=== PATIENT | male | born 1975 | race Caucasian/White ===

== ENCOUNTER 2021-08-13 17:51 | Inpatient (IN) ==
[2021-08-13 18:56] LABS: ABS Basophils 0.1 10^3/ul (0-0.2); ABS Eosinophils 0.2 10^3/ul (0-0.6); ABS Lymphocytes 1.4 10^3/ul (1.0-4.8); ABS Monocytes 0.6 10^3/ul (0-0.8); ABS Neutrophils 3.2 10^3/ul (1.5-7.7); Eosinophil % 4.4 %; Hematocrit 41 % (42-52); Hemoglobin 13.9 g/dL (14.0-18.0); Mean Corpuscular HGB Conc 34 g/dL (31-36); Mean Corpuscular Hemoglobin 31 pg (27-31); Mean Corpuscular Volume 89 fL (80-94); Nucleated Red Blood Cells % 0.1; Platelet Count 310 10^3/uL (150-450); Red Blood Count 4.53 10^6 /uL (4.18-5.48); Red Cell Distribution Width 13 % (10-15); White Blood Count 5.5 10^3/uL (3.5-10.8)
[2021-08-13 19:11] LABS: ALT 12 U/L (7-52); AST 13 U/L (13-39); Albumin 4.4 g/dL (3.2-5.2); Albumin/Globulin Ratio 1.9 (1-3); Alkaline Phosphatase 48 U/L (35-149); Anion Gap 5 mmol/L (2-11); Blood Urea Nitrogen 26 mg/dL (6-24); CO2 Carbon Dioxide 27 mmol/L (22-32); Calcium 9.3 mg/dL (8.6-10.3); Chloride 100 mmol/L (101-111); Globulin 2.3 g/dL (2-4); Glucose 93 mg/dL (70-100); Potassium 3.9 mmol/L (3.5-5.0); Sodium 132 mmol/L (135-145); Total Protein 6.7 g/dL (6.4-8.9); eGFR CKD-EPI 86.2 (>60)
[2021-08-13 19:16] LABS: Acetaminophen < 15 mcg/mL; Alcohol, S < 13 mg/dL (<13); Salicylate < 2.50 mg/dL (<30)
[2021-08-13 19:31] LABS: TSH Ultra Thyroid Stim Horm 1.89 mcIU/mL (0.34-5.60)
[2021-08-13 22:28] LABS: Rapid COVID-19 Molecular Undetected (Undetected)
[2021-08-13] MEDS ORDERED: Al Hydrox/Mg Hydrox/Simet LIQ 30 ML UDC PO PRN (22:51)
[2021-08-14] MEDS: Vitamin THERAPEUTIC TAB PO SCH (10:19)
[2021-08-15 08:00] LABS: HDL Cholesterol 46.5 mg/dL
[2021-08-15] MEDS: Vitamin THERAPEUTIC TAB PO SCH (13:09)
[2021-08-16] MEDS: Vitamin THERAPEUTIC TAB PO SCH (09:27)
[2021-08-17] MEDS: Vitamin THERAPEUTIC TAB PO SCH (10:10)
[2021-08-17] MEDS: Venlafaxine XR 75 mg PO SCH (13:54)
[2021-08-18] MEDS: Venlafaxine XR 75 mg PO SCH (07:24)
[2021-08-18] MEDS: Vitamin THERAPEUTIC TAB PO SCH (07:25)
[2021-08-19] MEDS: Vitamin THERAPEUTIC TAB PO SCH (08:39)
[2021-08-19] MEDS ORDERED: Lithium Carbonate ER 450mg TAB PO SCH (21:00)
[2021-08-20 07:52] VITALS: BP 196/84
[2021-08-20] MEDS: Vitamin THERAPEUTIC TAB PO SCH (10:14)
== END 2021-08-20 12:30 | disposition home or self-care (01) | DRG 753 ==
LOC: ED 17:51 → BSU 21:20
PROVIDERS: ADMIT Psychiatry & Neurology Psychiatry; ATTEND Psychiatry & Neurology Psychiatry

== ENCOUNTER 2021-08-23 15:52 | Inpatient (IN) ==
[2021-08-23 16:47] LABS: ABS Basophils 0.1 10^3/ul (0-0.2); ABS Eosinophils 0.2 10^3/ul (0-0.6); ABS Lymphocytes 1.3 10^3/ul (1.0-4.8); ABS Monocytes 0.8 10^3/ul (0-0.8); ABS Neutrophils 5.2 10^3/ul (1.5-7.7); Hematocrit 41 % (42-52); Hemoglobin 13.7 g/dL (14.0-18.0); Lymphocyte % 17.5 %; Mean Corpuscular HGB Conc 34 g/dL (31-36); Mean Corpuscular Hemoglobin 30 pg (27-31); Mean Corpuscular Volume 89 fL (80-94); Mean Platelet Volume 7.1 fL (7.4-10.4); Platelet Count 296 10^3/uL (150-450); Red Cell Distribution Width 14 % (10-15); White Blood Count 7.7 10^3/uL (3.5-10.8)
[2021-08-23 16:58] LABS: Albumin 4.3 g/dL (3.2-5.2); CO2 Carbon Dioxide 21 mmol/L (22-32); Calcium 9.1 mg/dL (8.6-10.3); Chloride 107 mmol/L (101-111); Sodium 137 mmol/L (135-145)
[2021-08-23 17:04] LABS: ALT 22 U/L (7-52); Albumin/Globulin Ratio 1.7 (1-3); Alkaline Phosphatase 46 U/L (35-149); Blood Urea Nitrogen 17 mg/dL (6-24); Globulin 2.6 g/dL (2-4); Glucose 83 mg/dL (70-100); Total Protein 6.9 g/dL (6.4-8.9); eGFR CKD-EPI 95.7 (>60)
[2021-08-23 18:07] LABS: Alcohol, S < 13 mg/dL (<13); Salicylate < 2.50 mg/dL (<30)
[2021-08-23 18:21] LABS: TSH Ultra Thyroid Stim Horm 3.31 mcIU/mL (0.34-5.60)
[2021-08-23 18:34] LABS: AST 20 U/L (13-39); Anion Gap 9 mmol/L (2-11); Potassium 4.4 mmol/L (3.5-5.0)
[2021-08-23 18:36] LABS: Acetaminophen < 15 mcg/mL
[2021-08-23 20:30] LABS: Urine Appearance Cloudy; Urine Bilirubin Negative (Negative); Urine Blood Negative (Negative); Urine Color Yellow; Urine Glucose Negative (Negative); Urine Ketones Negative (Negative); Urine Nitrite Negative (Negative); Urine Protein 1+(30 mg/dL) (Negative); Urine Specific Gravity 1.024 (1.002-1.030); Urine Urobilinogen Negative (Negative)
[2021-08-23 20:33] LABS: Urine Bacteria Absent (Absent); Urine Red Blood Cell Trace(0-2/hpf) (Absent); Urine Squamous Epithelial Cell Present (Absent); Urine White Blood Cell Trace(0-5/hpf) (Absent)
[2021-08-23 20:46] LABS: Urine Benzodiazepine Screen None Detected (None Detect); Urine Cannabinoids Screen Presumptive Positive (None Detect); Urine Opiates Screen None Detected (None Detect)
[2021-08-24] MEDS ORDERED: Al Hydrox/Mg Hydrox/Simet LIQ 30 ML UDC PO PRN (00:21)
[2021-08-24] MEDS: Vitamin THERAPEUTIC TAB PO SCH (09:00)
[2021-08-24] MEDS: Nicotine PATCH 21 MG/24 HR PATCH TRANSDERM SCH (09:00)
[2021-08-25 07:08] LABS: HDL Cholesterol 41.7 mg/dL
[2021-08-25] MEDS: Vitamin THERAPEUTIC TAB PO SCH (09:53)
[2021-08-25] MEDS: Nicotine PATCH 21 MG/24 HR PATCH TRANSDERM SCH (09:54)
[2021-08-26] MEDS: Vitamin THERAPEUTIC TAB PO SCH (07:29)
[2021-08-26] MEDS: Nicotine PATCH 21 MG/24 HR PATCH TRANSDERM SCH ×2 (09:13→15:55)
[2021-08-27] MEDS: Nicotine PATCH 21 MG/24 HR PATCH TRANSDERM SCH (07:48)
[2021-08-27] MEDS: Vitamin THERAPEUTIC TAB PO SCH (08:28)
[2021-08-27] MEDS: Nicotine GUM 2MG FRUIT FLAVOR PO PRN (16:05)
[2021-08-28] MEDS: Nicotine GUM 2MG FRUIT FLAVOR PO PRN ×3 (09:00→17:43)
[2021-08-28] MEDS: Vitamin THERAPEUTIC TAB PO SCH (09:32)
[2021-08-28] MEDS: Nicotine PATCH 21 MG/24 HR PATCH TRANSDERM SCH (09:33)
[2021-08-29] MEDS: Vitamin THERAPEUTIC TAB PO SCH (07:44)
[2021-08-29] MEDS: Nicotine PATCH 21 MG/24 HR PATCH TRANSDERM SCH (08:47)
[2021-08-29] MEDS: Nicotine GUM 2MG FRUIT FLAVOR PO PRN ×3 (11:49→17:41)
[2021-08-30] MEDS: Vitamin THERAPEUTIC TAB PO SCH (07:39)
[2021-08-30] MEDS: Nicotine PATCH 21 MG/24 HR PATCH TRANSDERM SCH (07:41)
[2021-08-30] MEDS: Nicotine GUM 2MG FRUIT FLAVOR PO PRN ×2 (08:03→12:21)
[2021-08-31] MEDS: Nicotine GUM 2MG FRUIT FLAVOR PO PRN ×3 (07:09→13:16)
[2021-08-31] MEDS: Vitamin THERAPEUTIC TAB PO SCH (07:31)
[2021-08-31] MEDS: Nicotine PATCH 21 MG/24 HR PATCH TRANSDERM SCH (07:31)
[2021-08-31 08:17] VITALS: BP 130/75
[2021-08-31] MEDS ORDERED: COVID-19 VACCINE, MRNA(MODERNA) BOOSTER/PF 50 MCG/0.25 ML IM ONE (10:15)
== END 2021-08-31 14:50 | disposition home or self-care (01) | DRG 753 ==
LOC: ED 15:52 → BSU 22:47
PROVIDERS: ADMIT Psychiatry & Neurology Psychiatry; ATTEND Student in an Organized Health Care Education/Training Program